=== PATIENT | female | born 1960 | race Caucasian/White ===

== ENCOUNTER → 2019-08-10 | Outpatient (CLI) | payer BC | END | disposition home or self-care (01) | CPT/HCPCS: 80053; 81003; 85027; 85610; 85730; 87070; 93005 ==

== ENCOUNTER → 2019-10-27 | Outpatient (CLI) | payer BC ==
[2019-10-27 11:35] LABS: Appearance,Urine Clear (Clear); Bilirubin,Urine Negative (Negative); Blood,Urine Negative (Negative); Color,Urine Light Yellow; Glucose,Urine (UA) Negative (Negative); Ketones,Urine Negative (Negative); Leukocyte Esterase,Urine Small (Negative); Mucus,Urine Rare /hpf; Nitrite,Urine Negative (Negative); Protein,Urine Negative (Negative); RBC,Urine <1 /hpf (0-5); Specific Gravity,Urine 1.014 (1.001-1.035); Squamous Epithelial Cell,Urine 1 /hpf (0-4); Urobilinogen,Urine <2.0 mg/dL (<2.0); WBC,Urine 3 /hpf (0-5)
[2019-10-27 12:00] LABS: INR 0.9 (<1.2); Partial Thromboplastin Time 24.8 sec (22.0-30.0); Prothrombin Time 9.9 sec (9.0-12.0)
[2019-10-27 13:11] LABS: HCT 49.7 % (34.0-46.0); HGB 15.8 gm/dL (11.4-16.0); MCHC 31.7 g/dL (31.0-37.0); MCV 94.7 fL (80.0-100.0); Mean Platelet Volume 8.1; Platelet Count 313 k/uL (150-450); RBC 5.25 m/uL (3.80-5.40); RDW 12.2 % (11.5-15.5); WBC 7.5 k/uL (3.8-10.6)
[2019-10-27 20:15] LABS: African American GFR (CKD) 110.7 (60.0-200.0); Albumin 4.5 g/dL (3.80-4.90); Albumin/Globulin Ratio 1.8 (1.60-3.17); Anion Gap 8.1 mmol/L (4.00-12.00); BUN/Creat Ratio 28.57 Ratio (12.00-20.00); Carbon Dioxide 28.9 mmol/L (21.6-31.8); Globulin 2.5 g/dL (1.6-3.3); Non-African American GFR(CKD) 95.5 (60.0-200.0); Potassium 4.1 mmol/L (3.5-5.5); Total Bilirubin 0.5 mg/dL (0.3-1.2)
== END | disposition home or self-care (01) ==
LOC: LABWHC1 10:39
PROVIDERS: ATTEND Orthopaedic Surgery
DX: Z01.818 Encounter for other preprocedural examination (principal); Z01.812 Encounter for preprocedural laboratory examination; U07.1 COVID-19
CPT/HCPCS: 80053; 85027; 85610; 85730; 81001; 87070; 36415; U0003

== ENCOUNTER 2019-11-01 10:09 | Day surgery (SDC) | payer BC ==
[2019-10-27 09:07] VITALS: BMI 35.7
[~2019-11-01 10:09] MED LIST: ACETAMINOPHEN TAB 500 MG TAB PO ONE; GABAPENTIN 300 MG CAP PO ONE; HYDROmorphone 0.5 MG/0.5 ML SYRINGE IVP PRN; LACTATED RINGERS 1,000 ML IV SCH; LIDOCAINE 1% (10MG/ML) FOR IV START INTRADERMA PRN; MELOXICAM 7.5 MG TAB PO ONE; ONDANSETRON 4 MG/2 ML VIAL IVP ONE; ROPIVACAINE 246.25 MG, EPINEPHrine 0.5 MG, KETOROLAC 30 MG, cloNIDine HCL/PF 80 MCG, WA... MISCELLANE ONE; TRANEXAMIC ACID 1,000 MG in SODIUM CHLORIDE 0.9% 100 ML IVPB ONE
[2019-11-01] MEDS ORDERED: DEXAMETHASONE SOD PHOSPHATE 10 MG/ML 1 ML VIAL IV ONE (10:47)
[2019-11-01] MEDS ORDERED: MIDAZOLAM 2 MG/2 ML VIAL IV ONE (10:56)
[2019-11-01] MEDS ORDERED: fentaNYL (PF) 50 MCG/ML 2 ML AMP IV ONE (10:57)
--- NOTE | 2019-11-01 11:50 | P.ANPRN ---
Procedure Note - Anesthesia - Nerve Block Performed Right Adductor Canal Infusion Time Out Performed: Yes (1055) Date of Procedure: 11/01/19 Procedure Start Time: 10:56 Procedure Stop Time: 11:03 Location of Patient: PreOp Indication: Requested by Surgeon Specifically requested for management of pain by DrChiki: Onel Godwin Sedation Type: Sedate with meaningful contact maintained Preparation: Sterile Prep Position: Supine Catheter: Indwelling Needle Types: Pajunk Needle Gauge: 20 Ultrasound used to visualize needle placement: Yes Ultrasound used to observe medication spread: Yes Injectate: 0.5% Ropivacaine (see comment for volume) (20cc) Blood Aspirated: Yes Pain Paresthesia on Injection Noted: Yes Resistance on Injection: Normal Image Stored and Saved: Yes Events: Uneventful and Well Tolerated
[2019-11-01] MEDS ORDERED: ROPIVACAINE 0.2%-NS ON-Q PUMP 1,090 MG, EMPTY PAIN BALL 1 EACH MISCELLANE PRN (12:01)
[2019-11-01] MEDS ORDERED: ceFAZolin 3,000 MG in SODIUM CHLORIDE 0.9% IRRIGATIO 3,000 ML IRRIGATION ONE (12:20)
[2019-11-01] MEDS ORDERED: TRANEXAMIC ACID 1,000 MG/10 ML VIAL ONE (12:20)
[2019-11-01] MEDS ORDERED: MIDAZOLAM 2 MG/2 ML VIAL ONE (12:20)
[2019-11-01] MEDS ORDERED: diphenhydrAMINE 50 MG/ML 1 ML VIAL ONE (12:20)
[2019-11-01] MEDS ORDERED: fentaNYL (PF) 50 MCG/ML 2 ML AMP ONE (12:20)
[2019-11-01] MEDS ORDERED: SODIUM CHLORIDE 0.9% 100 ML BAG ONE (12:20)
[2019-11-01] MEDS ORDERED: LACTATED RINGERS 1,000 ML IV ONE (12:41)
--- NOTE | 2019-11-01 13:34 | P.OP ---
Date of Procedure: 11/01/19 Preoperative Diagnosis: Severe osteoarthritis right knee Postoperative Diagnosis: Severe osteoarthritis right knee Procedure(s) Performed: Right total knee arthroplasty utilizing [employer] patient specific guides Implants: Upton and Nephew Cruciate Retaining Journey II CR Oxinium Femoral Component size 5, right Upton [employer] Nephew Journey Nonporous Tibial Baseplate size 3, right Upton [employer] Nephew Journey II CR, Deep dish Articular Insert, 13 mm, size 3-4 Upton & Nephew Donna II Resurfacing Patellar Component, Oval, 32 mm All components were cemented using Palacose R bone cement. The articulation is Oxinium on polyethylene. Visionaire patient specific guides The articulation is Oxinium on polyethylene. Anesthesia: spinal Surgeon: Onel Godwin Well Driller Helper #1: Brianda Duarte Estimated Blood Loss (ml): 35 Pathology: other (Bone and cartilage) Condition: stable Disposition: PACU Indications for Procedure: After failure of conservative treatment we discussed the surgical and nonsurgical treatment options at length. Patient wishes to proceed with a total knee arthroplasty. Complications specific to this procedure were discussed at length, including but not limited to infection, bleeding, stiffness, and nerve injury. Covid-19 was also discussed at length with the patient, and they are aware of the current policies and procedures. The patient was given the option of delaying surgery, but they elect to proceed knowing these risks. Patient is aware of all these complications and informed consent was obtained Operative Findings: The operative findings are consistent with severe osteoarthritis of the right knee Description of Procedure: Patient was seen in the preoperative area consent was reviewed and operative site was marked with a skin marker. An adductor canal pain catheter was placed by anesthesia in the preoperative area. Patient was then brought to the operating room and given preoperative antibiotics intravenously. A spinal anesthetic was administered by the anesthesia department. A tourniquet was placed on the upper thigh and the lower extremity was prepped and draped in usual sterile fashion. A gram of transexamic acid was given. A universal timeout was then performed which confirmed the patient's name, surgical site, ALLERGIES, and consent. The lower extremity was then exsanguinated and tourniquet was inflated to 250 mmHg. A standard and anterior midline approach to the knee was performed. The skin and subcutaneous tissue was dissected down to the patellar tendon. A medial parapatellar arthrotomy was then performed. The knee was then extended, the patellar was everted, and the knee was again flexed. Anterior horns of both menisci were excised, and a release was performed to the posterior medial aspect of the knee. On gross visual inspection, there was complete loss of articular cartilage in the medial and patellofemoral joint spaces. There was also significant cartilage damage in the lateral compartment. There were multiple periarticular osteophytes. The patient specific guide was placed on the distal femur, and pinned in place. Using the patient specific guide, the distal femoral cut was performed. The cutting block was then removed and the cut was checked for flatness. The appropriate 5-in-1 cutting block was then pinned in place through the holes that were drilled through the patient specific guide. The anterior condyles were cut without notching. The posterior and chamfer cuts were performed while protecting the collateral ligaments. The cutting block was then removed. Attention was then directed to the tibia. The remaining ACL was removed with a Ronguer, and the tibia was then gently subluxed forward with a large bent knee retractor. Any remaining menisci was excised. The posterior lateral corner was cauterized in order to cauterize the lateral geniculate artery. The patient specific guide for the tibia was then placed and was held in place with pins. P inholes were then placed for rotation of the tibial component as well. Proximal tibia was then cut and sized. Next trials were then placed with the appropriate-sized insert. The knee was able to fully extend and flex to 130 and was stable throughout all range of motion. The knee was then extended, patella everted. Patella was then measured, and then using an osteotomy guide, the patella was cut at the appropriate level. The patella was then measured and drilled and the patella trial was then placed. The knee was then taken through range of motion with the patella trial and the patella tracked normally. The knee was then extended patella trial was then removed and the patella was everted. Knee was then flexed and lug holes were drilled through the femoral trial and the femoral trial was then removed. The tibial was then exposed, and the tibial broach guide was then pinned in place after it was set for the appropriate rotation to allow for the most coverage without overhang. The tibia was then reamed and broached. The cut surfaces of bone were then irrigated with pulsatile lavage. The posterior structures were injected with the ropivacaine solution. The knee was also irrigated with Irrisept solution. The components were then opened, the cement was mixed, and the components were then cemented in place. The cement was allowed to harden with the knee in full extension. While the cement was hardening, the remaining soft tissues were then injected with a ropivacaine solution, which consisted of 246.25 mg of ropivacaine, 0.5 mg of epinephrine, 30 mg of Toradol, 80 g of clonidine, and 48.45 mL of sterile water, for a total of 100 mL of fluid injected. After the cemented hardened. The tourniquet was released, and hemostasis was obtained. A second gram of transexamic acid was given. The knee was again irrigated. The knee was again taken through range of motion and found to be stable throughout all range of motion of 0-130, and the patella tracked normally. The fascia was then closed with #2 strata fix suture. The subcutaneous tissue was closed with 3-0 Vicryl and 3-0 strata fix. Dermabond glue was used for the skin and placed with the knee in flexion. The patient was placed in a sterile silver dressing. Patient was then transferred to recovery room in stable condition. The assistant to the director PADMINI Bartlett was required due the complexity surgery and the need for a skilled neurosurgical physician assistant. She assisted in positioning, draping, retraction, and closure of the wound.
[2019-11-01] MEDS ORDERED: hydrOXYzine PAMOATE 25 MG CAP PO PRN (14:21)
[2019-11-01] MEDS ORDERED: HYDROcodone/APAP 5-325MG 1 EACH TAB PO PRN (14:21)
[2019-11-01] MEDS ORDERED: HYDROmorphone 0.5 MG/0.5 ML SYRINGE IVP PRN ×2 (14:21)
[2019-11-01] MEDS ORDERED: NALOXONE 0.4 MG/ML 1 ML VIAL IV PRN (14:21)
[2019-11-01] MEDS ORDERED: HYDROmorphone 1 MG/ML 1 ML SYRINGE IVP PRN (14:21)
[2019-11-01] MEDS ORDERED: ONDANSETRON 4 MG/2 ML VIAL IVP PRN (14:21)
--- NOTE | 2019-11-01 14:55 | XR ---
EXAMINATION TYPE: XR knee limited RT DATE OF EXAM: 11/01/2019 COMPARISON: None HISTORY: Postsurgical knee TECHNIQUE: 2 view right knee FINDINGS: Tibial and femoral components of in place. Postsurgical changes are within the soft tissues. No acute fractures are evident. IMPRESSION: 1. No fracture post knee replacement. MTDD
--- NOTE | 2019-11-01 15:48 | P.CONS ---
History of Present Illness - Reason for Consult Consult date: 11/01/19 HTN Requesting physician: Onel Godwin - Chief Complaint Knee pain - History of Present Illness Patient is a 59-year-old female with high blood pressure, prior h istory of migraine headaches, and obesity who presented for elective right total knee arthroplasty. Patient had a seizure completed on 10/31 without any immediate postoperative complications. Patient seen and examined at bedside. She states that she was having increasing knee pain in her right knee and decided for operative management. She plans on having the left knee done later this year. She denies any postoperative chest pain, shortness breath, nausea, or vomiting. Prior hospitalizations was in her normal state of health. No recent cough, cold, fever, flu, nausea, vomiting, diarrhea, or dysuria. She is not requiring any assistive devices. Review of Systems Pertinent positives and negatives as discussed in HPI, a complete review of systems was performed and all other systems are negative. Past Medical History Past Medical History: Hypertension Additional Past Medical History / Comment(s): hx migraines, History of Any Multi-Drug Resistant Organisms: None Reported Past Surgical History: Section, Hysterectomy, Tonsillectomy Past Anesthesia/Blood Transfusion Reactions: Family History of Problems w/ Anesthesia, Postoperative Nausea & Vomiting (PONV) Additional Past Anesthesia/Blood Transfusion Reaction / Comm: daughter-PONV Smoking Status: Never smoker Past Alcohol Use History: Rare Past Drug Use History: None Reported Additional History: no assistive devices - Past Family History Sister(s) Family Medical History: Cancer, Deep Vein Thrombosis (DVT) Brother(s) Family Medical History: Cancer Medications and Allergies Home Medications Medication Instructions Recorded Confirmed Type Acetaminophen [Tylenol Extra 1,000 mg PO DIRECTED PRN 10/27/19 11/01/19 History Strength] Hydrochlorothiazide [Hydrodiuril] 25 mg PO DAILY 10/27/19 11/01/19 History Allergies Allergy/AdvReac Type Severity Reaction Status Date / Time No Known Allergies Allergy Verified 11/01/19 10:32 Physical Exam Osteopathic Statement: *. No significant issues noted on an osteopathic structural exam other than those noted in the History and Physical/Consult. Vitals: Vital Signs Temp Pulse Resp BP Pulse Ox 11/01/19 15:15 97.7 F 97 16 132/83 91 L 11/01/19 15:00 100 18 134/63 96 11/01/19 14:45 102 H 14 134/63 99 11/01/19 14:30 93 16 132/62 96 11/01/19 14:15 97 18 129/60 99 11/01/19 14:10 98.6 F 100 16 137/65 100 11/01/19 10:33 97.9 F 96 132/76 97 Intake and Output 11/01/19 11/01/19 11/01/19 06:59 14:59 22:59 Intake Total 1451 Balance 1451 Intake: IV 1451 Other: Weight 100.3 kg General: non toxic, no distress, appears at stated age, Obese Derm: no unusual rashes/lesions no unusual ecchymoses, warm, dry Head: atraumatic, normocephalic, symmetric Eyes: EOMI, no lid lag, anicteric sclera, pupils equal round reactive to light ENT: Nose and ears atraumatic, no thrush, no pharyngeal erythema Neck: No thyromegaly, no cervical lymphadenopathy, trachea midline, supple Mouth: no lip lesion, mucus membranes moist Cardiovascular: S1S2 reg, no murmur, positive posterior tibial pulse bilateral, no edema, capillary refill less than 2 seconds Lungs: CTA bilateral, no rhonchi, no rales , no accessory muscle use Abdominal: soft, nontender to palpation, no guarding, no appreciable organomegaly, normal bowel sounds Ext: no gross muscle atrophy, muscle strength 5 out of 5 in all upper extremities grossly, able to wiggle toes bilateral lower extremities, no contractures, Neuro: CN II-XI grossly intact, light touch intact all 4 extremities, finger to nose within normal limits, Psych: Alert, oriented, appropriate affect Assessment and Plan Assessment: Patient's-year-old female status post right total knee arthroplasty. Management by Dr. Godwin's team. Follow AM CBC Hypertension, controlled -Resume hydrochlorothiazide -Follow blood pressures History of GERD with NSAID use -Initiate Pepcid while taking twice daily aspirin Obesity with BMI 36.8 -Outpatient structured weight loss Patient is planning to go home with home health care. She lives in [place]. Thank you for allowing us to participate in the care of this pleasant patient. Do not hesitate to contact us with questions. Someone can be reached from the [facility] hospitalist group all hours of the day at [phone] or via perfect serve.
[2019-11-01] MEDS: LACTATED RINGERS 1,000 ML IV SCH ×2 (16:14→22:31)
[2019-11-01] MEDS: FAMOTIDINE 20 MG TAB PO SCH (16:39)
[2019-11-01] MEDS ORDERED: SENNOSIDES-DOCUSATE SODIUM 1 EACH TAB PO SCH (21:00)
[2019-11-01] MEDS: ASPIRIN 325 MG TAB PO SCH (22:31)
[2019-11-02] MEDS: HYDROcodone/APAP 5-325MG 1 EACH TAB PO PRN ×3 (01:47→12:51)
[2019-11-02] MEDS: ASPIRIN 325 MG TAB PO SCH (07:29)
[2019-11-02] MEDS: HYDROCHLOROTHIAZIDE 25 MG TAB PO SCH ×2 (07:29→07:30)
[2019-11-02 08:06] VITALS: BP 109/65; PULSE 75; RESP 18; TEMP 98.4
[2019-11-02 08:51] LABS: Basophils % (A) 0 %; Eosinophils % (A) 0 %; HCT 39.6 % (34.0-46.0); HGB 13.3 gm/dL (11.4-16.0); Lymphocytes % (A) 12 %; MCH 32.6 pg (25.0-35.0); MCHC 33.5 g/dL (31.0-37.0); MCV 97.1 fL (80.0-100.0); Mean Platelet Volume 7.9; Monocytes # (A) 0.7 k/uL (0-1.0); Monocytes % (A) 4 %; Neutrophils % (A) 82 %; Platelet Count 285 k/uL (150-450); RBC 4.07 m/uL (3.80-5.40); RDW 12.4 % (11.5-15.5); WBC 15.8 k/uL (3.8-10.6)
[2019-11-02] MEDS: FAMOTIDINE 20 MG TAB PO SCH (10:02)
--- NOTE | 2019-11-02 11:14 | P.PN ---
Subjective Progress Note Date: 11/02/19 Principal diagnosis: knee pain Patient is a 59-year-old female with high blood pressure, prior history of migraine headaches, and obesity who presented for elective right total knee arthroplasty. Patient had a seizure completed on 10/31 without any immediate postoperative complications. Patient seen and examined at bedside. No chest pain, shortness breath, nausea, vomiting, or diarrhea. Objective - Vital Signs Vital signs: Vital Signs Temp 98.4 F 11/02/19 07:00 Pulse 75 11/02/19 07:30 Resp 18 11/02/19 07:30 BP 109/65 11/02/19 07:00 Pulse Ox 94 L 11/02/19 07:00 Intake & Output 11/01/19 11/02/19 11/02/19 18:59 06:59 18:59 Intake Total 1451 Balance 1451 Weight 100.3 kg Intake: IV 1451 Other: Voiding Method Toilet Toilet # Voids 2 - Exam General: non toxic, no distress, appears at stated age, obese Derm: warm, dry Head: atraumatic, normocephalic, symmetric Eyes: EOMI, no lid lag, anicteric sclera Mouth: no lip lesion, mucus membranes moist Cardiovascular: S1S2 reg, no murmur, positive posterior tibial pulse bilateral, Lungs: CTA bilateral, no rhonchi, no rales , no accessory muscle use Abdominal: soft, nontender to palpation, no guarding, no appreciable organomegaly Ext: no gross muscle atrophy, 1+ edema right lower extremity, no contractures, dressing intact right knee Neuro: CN II-XI grossly intact, no focal neuro deficits Psych: Alert, oriented, appropriate affect - Labs CBC & Chem 7: 11/02/19 07:33 Labs: Abnormal Lab Results - Last 24 Hours (Table) 11/02/19 Range/Units 07:33 WBC 15.8 H (3.8-10.6) k/uL Neutrophils # 13.0 H (1.3-7.7) k/uL Assessment and Plan Assessment: Patient is a 59 year-old female status post right total knee arthroplasty. Management by Dr. Godwin's team. Hypertension, controlled -Resume hydrochlorothiazide -Follow blood pressures History of GERD with NSAID use -Pepcid while taking twice daily aspirin,RX sent Obesity with BMI 36.8 -Outpatient structured weight loss medically optimized for discharge
--- NOTE | 2019-11-02 13:10 | P.DS ---
Providers Expected date of discharge: 11/02/19 Attending physician: Onel Godwin Consults: 11/01/19 14:33 Consult Physician Routine Consulting Provider: Karla Knowles Consult Reason/Comments: medical management Do you want consulting provider notified?: Yes Primary care physician: Eleuterio Haque [facility] Course: This is a 59-year-old female who was last seen with complaint of continued right knee pain by Dr. Godwin. The patient has a known history of degenerative arthritis of the right knee and presents to discuss surgical options. After discussion and consideration the patient elects to proceed with total right knee arthroplasty. The patient is seen preoperatively by Moncho Hernandez DNP and cleared for surgery. The patient is admitted to [facility] for total right knee arthroplasty. The procedures performed without complication or sequelae. Vital signs and labs are stable on postoperative day #1. The patient is examined bedside this morning with Dr. Godwin. Patient states she is experiencing mild pain in the right knee. She has been ambulating to the bathroom with the assistance of a walker. She has been cleared by physical therapy to discharge home with home health care. She overall feels well this morning and has no new complaints. She is currently eating breakfast. On examination, the patient is lying in bed in no apparent distress. She is al ert and oriented 3. On inspection of the right knee, there is a clean, dry, intact surgical dressing in place. Patient has ice placed over the anterior knee. Patient able to flex and extend knee without issue. The right lower extremity is warm and well-perfused. The patient is discharged to home on post-operative day #1 pending medical clearance. Please see orders and refer to the [facility] rec for accurate list of medications. Patient Condition at Discharge: Fair Plan - Discharge Summary Discharge Rx Participant: Yes New Discharge Prescriptions: New HYDROcodone/APAP 5-325MG [[place] 5-325] 1 - 2 tab PO Q6HR PRN 7 Days #42 tab PRN Reason: Pain Aspirin 325 mg PO BID 30 Days #60 tab Famotidine [Pepcid] 20 mg PO DAILY #30 tab Continue Hydrochlorothiazide [Hydrodiuril] 25 mg PO DAILY Acetaminophen [Tylenol Extra Strength] 1,000 mg PO DIRECTED PRN PRN Reason: Pain Discharge Medication List Acetaminophen [Tylenol Extra Strength] 1,000 mg PO DIRECTED PRN 10/27/19 [History] Hydrochlorothiazide [Hydrodiuril] 25 mg PO DAILY 10/27/19 [History] Aspirin 325 mg PO BID 30 Days #60 tab 11/02/19 [Rx] Famotidine [Pepcid] 20 mg PO DAILY #30 tab 11/02/19 [Rx] HYDROcodone/APAP 5-325MG [[place] 5-325] 1 - 2 tab PO Q6HR PRN 7 Days #42 tab 11/02/19 [Rx] Follow up Appointment(s)/Referral(s): [facility], [NON-STAFF] - Moncho Hernandez NPC [REFERRING] - 11/09/19 9:00 am Onel Godwin DO [Doctor of Osteopathic Medicine] - 11/21/19 11:15 am Patient Instructions/Handouts: *Surgery [facility] - On-Q Pain Pump Discharge Instructions, Knee Replacement (DC) Activity/Diet/Wound Care/Special Instructions: Weight-bear as tolerated on your operative leg. Use walker for ambulation. Keep dressing in place for 7-10 days. Take pain medications as prescribed. Take aspirin for DVT prophylaxis as prescribed. Follow-up in the office with Dr. Godwin in 2 weeks. Call office with any questions or concerns Discharge Disposition: HOME WITH HOME HEALTH SERVICES
== END 2019-11-02 13:49 | disposition home health service (06) ==
LOC: OR 10:09 → 4SSUR 14:30 → OR 11-02 13:49
PROVIDERS: ATTEND Orthopaedic Surgery
DX: M17.0 Bilateral primary osteoarthritis of knee (principal); I10 Essential (primary) hypertension; E78.5 Hyperlipidemia, unspecified; F17.210 Nicotine dependence, cigarettes, uncomplicated; E66.9 Obesity, unspecified; K21.9 Gastro-esophageal reflux disease without esophagitis; G43.909 Migraine, unspecified, not intractable, without status migrainosus; Z68.36 Body mass index [BMI] 36.0-36.9, adult; Z97.3 Presence of spectacles and contact lenses; Z90.710 Acquired absence of both cervix and uterus; Z98.891 History of uterine scar from previous surgery; Z79.899 Other long term (current) drug therapy; Z80.9 Family history of malignant neoplasm, unspecified; Z83.3 Family history of diabetes mellitus; Z82.49 Family history of ischemic heart disease and other diseases of the circulatory system
CPT/HCPCS: 97110; 97161; 64448; 76942; 85025; 88300; 73560; 27447; C1713; C1776; J2250; J0171; J1100; J0690 ×3; J2405; J3010; J1885; J2795 ×2; J0735

== ENCOUNTER → 2020-02-13 | Outpatient (CLI) | payer BC ==
[2020-02-13 14:52] LABS: HCT 46.6 % (34.0-46.0); HGB 15.1 gm/dL (11.4-16.0); MCH 29.3 pg (25.0-35.0); MCHC 32.3 g/dL (31.0-37.0); MCV 90.7 fL (80.0-100.0); Mean Platelet Volume 7.1; Platelet Count 334 k/uL (150-450); RBC 5.14 m/uL (3.80-5.40); RDW 13.7 % (11.5-15.5); WBC 5.8 k/uL (3.8-10.6)
[2020-02-13 14:53] LABS: Appearance,Urine Clear (Clear); Bilirubin,Urine Negative (Negative); Blood,Urine Negative (Negative); Color,Urine Light Yellow; Glucose,Urine (UA) Negative (Negative); Ketones,Urine Negative (Negative); Leukocyte Esterase,Urine Moderate (Negative); Mucus,Urine Few /hpf; Nitrite,Urine Negative (Negative); PH, Urine 7.5 (5.0-8.0); Protein,Urine Negative (Negative); RBC,Urine 3 /hpf (0-5); Specific Gravity,Urine 1.013 (1.001-1.035); Squamous Epithelial Cell,Urine 3 /hpf (0-4); Urobilinogen,Urine <2.0 mg/dL (<2.0); WBC,Urine 4 /hpf (0-5)
[2020-02-13 15:05] LABS: ALT 31 U/L (4-34); AST 38 U/L (14-36); African American GFR (CKD) >90 (>60 ml/min/1.73 sqM); Albumin 4.4 g/dL (3.5-5.0); Alkaline Phosphatase 67 U/L (38-126); Anion Gap 8 mmol/L; Blood Urea Nitrogen 15 mg/dL (7-17); Calcium 9.8 mg/dL (8.4-10.2); Carbon Dioxide 31 mmol/L (22-30); Chloride 99 mmol/L (98-107); Glucose 89 mg/dL (74-99); Non-African American GFR(CKD) >90 (>60 ml/min/1.73 sqM); Potassium 4.1 mmol/L (3.5-5.1); Sodium 138 mmol/L (137-145); Total Bilirubin 0.6 mg/dL (0.2-1.3); Total Protein 7.3 g/dL (6.3-8.2)
[2020-02-13 15:13] LABS: Partial Thromboplastin Time 24.5 sec (22.0-30.0)
== END | disposition home or self-care (01) ==
LOC: LABPAT 13:17
PROVIDERS: ATTEND Orthopaedic Surgery
DX: Z01.818 Encounter for other preprocedural examination (principal); Z01.812 Encounter for preprocedural laboratory examination; M17.12 Unilateral primary osteoarthritis, left knee
CPT/HCPCS: 36415; 80053; 81001; 85027; 85610; 85730; 87070